=== PATIENT | male | born 1985 | race Caucasian/White ===

== ENCOUNTER 2023-12-10 21:13 | Emergency (ER) | payer OTHER, SELFPAY ==
[2023-12-10 21:19] VITALS: BP 194/101
[2023-12-10 23:55] VITALS: BMI 41.2
--- NOTE | 2023-12-11 02:02 | ED.GENMED ---
History of Present Illness
General
Chief Complaint: DVT/Possible Blood Clot
Source: patient
Exam Limitations: none
Time Seen by Provider: 12/11/23 01:40
Nursing documentation reviewed up to this point in time: agreed with
Travel History
Have you had any contact with someone who has COVID-19?: No
Do you have any symptoms of coronavirus? Fever > 100 degrees, chills, cough, shortness of breath, sore throat, loss of taste or smell, muscle aches, or headache?: No
History of Present Illness
History of Present Illness:
38-year-old male presents emergency department complaining of bruising to right forearm. He denies any injury. He takes Plavix and aspirin.
Past History
Past History
ED Past Medical History: CVA and Other (MRSA infection left lower extremity, factor V Leiden heterozygosity)
ED Past Surgical History: Orthopedic (Left knee surgeries x2) and Other (Bariatric surgery January 2021)
Social History
Tobacco: Non-smoker
Alcohol: Occasional
Drug: None
Personal: Single
Living: with family
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
Family History
Family History: Other (Mother with factor V Leiden had a stroke in her 30s)
Review of Systems
Review of Systems
Allergies reviewed?: Yes
All Other Systems: Not applicable
Constitutional: Reports no symptoms
EENT: Reports no symptoms
Respiratory: Reports no symptoms
Cardiac: Reports no symptoms
ABD/GI: Reports no symptoms
: Reports no symptoms
Musculoskeletal: Reports no symptoms
Skin: Reports other (Bruising right forearm)
Neurological: Reports no symptoms
Endocrine: Reports no symptoms
Hematologic/Lymphatic: Reports bruising
Psychiatric: Reports no symptoms
Phy Exam
Physical Exam
Physical Exam:
Physical Exam
General: no apparent distress, not acutely ill
Neck: supple. no meningeal signs. normal posterior pharynx
Heart: equal radial pulses.
HEENT: Pupils equal round reactive to light, EOMI
Lungs: no acute respiratory distress.
Abdomen: Nondistended
Neuro: alert and oriented. no focal neurological deficits
Skin: no rash, 2 cm hematoma right forearm appears 1 to 2 days old.
Psychiatric: well kept. interactive and cooperative
Extremities: no edema. no calf tenderness. negative homans. good distal pulses
Course
Orders/Labs/Results
Orders:
Orders
12/11/23 00:00
US Periph Venous UPPER Ext RT Urgent
Reason For Exam: bruising
Vital Signs
Initial and Last Documented VS:
Initial Vital Signs
Temp Pulse Resp BP Pulse Ox
98.2 F 73 18 194/101 98
12/10/23 21:19 12/10/23 21:19 12/10/23 21:19 12/10/23 21:19 12/10/23 21:19
Last Documented Vital Signs
Temp Pulse Resp BP Pulse Ox
98.2 F 73 18 194/101 98
12/10/23 21:19 12/10/23 21:19 12/10/23 21:19 12/10/23 21:19 12/10/23 21:19
MDM/Problems Addressed
Differential Diagnosis Includes:
DVT, compartment syndrome
MDM/Problems Addressed:
38-year-old male with hematoma right forearm, do not suspect DVT. Ultrasound negative.
Chronic conditions affecting care: HTN and Other (Prior TIA)
Acute Exacerbation and/or Progression of Chronic Illness: Other (Prior TIA)
*Radiology
Radiology exam reviewed: radiology read reviewed (Ultrasound no signs of DVT right arm)
*Pulse Oximetry
Patient hypoxic: no
*EKG
Interpreted by ED Provider?: NA
*Sanitation Worker Interpretation
Rate: Sanitation Worker- N/A
*Critical Care Note
Total Time (30-74mins, 75-104mins- exclusive of procedures): Not Applicable
Patient Management
Social determinants of health affecting care: Living situation
Escalation/DeEscalation of care consider admission/obs:
Not indicated
ED Attending Note
-
Portions of this chart may have been created with voice recognition software.� Occasional wrong word or��sound alike� substitutions may have occurred due to the inherent limitations of voice recognition software.
Discharge Plan
Departure
Patient Disposition: Home (Routine Discharge)
Date of Disposition: 12/11/23
Time of Disposition: 02:02
Patient with high blood pressure during this ER visit?: Yes
Condition: Good
Discharge Problem:
Traumatic hematoma of right forearm
Instructions: BLOOD PRESSURE, Hematoma
Prescriptions:
No Action
multivitamin Tablet
1 tab PO DAILY
aspirin 81 mg Tablet,Delayed Release (Dr/Ec)
81 mg PO DAILY Qty: 60 0RF
nifedipine 30 mg Tablet Extended Release
30 mg PO DAILY Qty: 30 0RF
clopidogrel 75 mg Tablet
75 mg PO DAILY Qty: 19 0RF
atorvastatin [Lipitor] 40 mg tablet
40 mg PO DAILY Qty: 30 0RF
Referrals:
Kiko Valladares DO [Family Provider] -
Interventions
Interventions:
*Risk Screen - Suicide Last Done: 12/11/23 00:38
*Neglect/Abuse Screening Last Done: 12/11/23 00:38
ED- Fall Risk Assessment Last Done: 12/11/23 00:38
*ED COVID-19 Vaccine History Last Done: 12/11/23 00:38
ED- Cardiac Assessment Last Done: 12/10/23 23:53
ED- Pulmonary Assessment Last Done: 12/10/23 23:53
ED-Peripheral Vascular Assessment Last Done: 12/10/23 23:53
ED-Skin Assessment Last Done: 12/10/23 23:53
Discharge Date and Time
Print Language: SETS[place]
[2023-12-11 02:05] VITALS: BP 172/88
== END 2023-12-11 02:12 | disposition home or self-care (01) ==
LOC: EMR 21:13
PROVIDERS: EMERGENCY PHYSICIAN Emergency Medicine; FAMILY PHYSICIAN Family Medicine
DX: S50.11XA Contusion of right forearm, initial encounter (principal); X58.XXXA Exposure to other specified factors, initial encounter; Z86.73 Personal history of transient ischemic attack (TIA), and cerebral infarction without residual deficits; D68.51 Activated protein C resistance; D68.2 Hereditary deficiency of other clotting factors; I10 Essential (primary) hypertension; Z82.3 Family history of stroke
CPT/HCPCS: 99284; 93971

== ENCOUNTER → 2024-06-24 07:23 | Day surgery (SDC) | payer BC, SELFPAY ==
[2024-06-24 07:58] VITALS: BMI 41.5
== END ==
LOC: CATH 07:23
PROVIDERS: ATTENDING PHYSICIAN Internal Medicine Cardiovascular Disease; FAMILY PHYSICIAN Family Medicine
DX: I35.1 Nonrheumatic aortic (valve) insufficiency (principal); I08.3 Combined rheumatic disorders of mitral, aortic and tricuspid valves; I08.8 Other rheumatic multiple valve diseases
CPT/HCPCS: 93312; 93320; 93325

== ENCOUNTER 2025-08-17 00:49 | Emergency (ER) | payer OTHER, SELFPAY ==
[2025-08-17 00:51] VITALS: BP 180/89
[2025-08-17 01:18] VITALS: BP 164/89
--- NOTE | 2025-08-17 01:27 | ED.GENMED ---
History of Present Illness
General
Chief Complaint: Abdominal Pain
Time Seen by Provider: 08/17/25 01:12
History of Present Illness
History of Present Illness:
39-year-old male presents to the emergency department for evaluation of 2 bouts of mid back discomfort radiating to the upper abdomen bilaterally. Each episode lasted 5 minutes before resolving. No obvious provoking or palliating factors.
Currently pain-free. Prior history of gastric sleeve. Denies fever, chills, sweats, vomiting, diarrhea, or melena. Does not routinely take NSAIDs other than baby aspirin due to prior history of stroke.
Past History
Past History
ED Past Medical History: CVA and Other (MRSA infection left lower extremity, factor V Leiden heterozygosity)
ED Past Surgical History: Orthopedic (Left knee surgeries x2) and Other (Bariatric surgery January 2021)
Social History
Tobacco: Non-smoker
Alcohol: Occasional
Drug: None
Personal: Single
Living: with family
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
Family History
Family History: Other (Mother with factor V Leiden had a stroke in her 30s)
Review of Systems
Review of Systems
Allergies reviewed?: Yes
All Other Systems: ROS reviewed and negative except as documented in HPI and ROS
Phy Exam
Physical Exam
Physical Exam:
GEN: Well appearing, NAD, WDWN
HEENT: Oral mucosa moist, no scleral icterus
Cardiac: Regular rate
Lung: No respiratory distress, no tachypnea
Abdomen: Soft, grossly nontender, negative Fischer
MSK: No gross deformity or injuries
Skin: Good color, no pallor or jaundice, no rashes
Neuro: AO x3, moves all extremities freely
Psych: Calm, cooperative
Course
Orders/Labs/Results
Orders:
Orders
08/17/25 00:56
ECG [Electrocardiogram (*1)] Urgent
Reason for Study: Abdominal Pain
EKG- Treatment ONCE
08/17/25 01:37
Complete Blood Count/With Diff Urgent
Comprehensive Metabolic Panel Urgent
Lipase Urgent
Abnormal Lab Results
08/17/25
01:37
Hct 38.3 L %
(39.0-52.0)
Glucose 106 H mg/dl
(70-99)
08/17/25 01:37
08/17/25 01:37
Vital Signs
Initial and Last Documented VS:
Initial Vital Signs
Temp Pulse Resp BP Pulse Ox
98.0 F 79 16 180/89 95
08/17/25 00:51 08/17/25 00:51 08/17/25 00:51 08/17/25 00:51 08/17/25 00:51
Last Documented Vital Signs
Temp Pulse Resp BP Pulse Ox
98.0 F 66 16 148/75 96
08/17/25 00:51 08/17/25 02:45 08/17/25 02:30 08/17/25 02:00 08/17/25 02:45
MDM/Problems Addressed
MDM/Problems Addressed:
Exam benign, labs reassuring. Lack of active pain do not see indication for imaging. Did consider biliary colic however the bilateral nature of the pain makes this less likely.
*Pulse Oximetry
SaO2: 95
Oxygen Mode of Delivery: Room air
Patient hypoxic: no
*Critical Care Note
Total Time (30-74mins, 75-104mins- exclusive of procedures): Not Applicable
ED Attending Note
-
Portions of this chart may have been created with voice recognition software.� Occasional wrong word or��sound alike� substitutions may have occurred due to the inherent limitations of voice recognition software.
Discharge Plan
Departure
Patient Disposition: Home (Routine Discharge)
Date of Disposition: 08/17/25
Time of Disposition: 02:49
Patient with high blood pressure during this ER visit?: No
Discharge Problem:
Abdominal pain
Instructions: Abdominal Pain
Prescriptions:
No Action
valsartan 160 mg Capsule
160 mg PO DAILY
chlorthalidone 25 mg Tablet
25 mg PO DAILY
albuterol-budesonide 90-80 mcg/actuation Hfa Aerosol Inhaler
2 inh INHALATION ONCE
Rx Instructions:
as a single dose; may repeat up to 6 doses per day (12 inhalations)
atorvastatin [Lipitor] 40 mg tablet
40 mg PO DAILY
aspirin 81 mg tablet,delayed release (DR/EC)
162 mg PO DAILY
Referrals:
Kiko Valladares DO [Family Provider, Family Practice]
Activity Restrictions/Additional Instructions:
If you have continued bouts of upper abdominal pain, particularly with fatty meal intake, please consider outpatient gallbladder imaging
If you develop increased nausea and/or diarrhea today, this likely indicates food poisoning was the cause of your pain
Interventions
Interventions:
*General Assessment Last Done: 08/17/25 02:57
*Neglect/Abuse Screening Last Done: 08/17/25 02:57
*ED COVID-19 Vaccine History Last Done: 08/17/25 00:52
*ED Influenza Vaccine History Last Done: 08/17/25 00:55
[facility] Risk Assessment Tool Last Done: 08/17/25 00:56
*Risk Screen - Suicide (C-SSRS) Last Done: 08/17/25 02:59
*Nursing Disposition Last Done: 08/17/25 02:57
OZ-[id number]-[id number] Assessment Last Done: 08/17/25 01:59
Discharge Date and Time
Discharge Date/Time: 08/17/25 02:59
Print Language: [place]
[2025-08-17 01:51] LABS: Hematocrit 38.3 % (39.0-52.0); Hemoglobin 13.6 g/dL (13.0-18.0); Mean Corp Hgb Conc. 35.5 g/dL (33.0-37.0); Mean Corpuscular Volume 80.3 fL (80.0-94.0); Nucleated Red Blood Cells % 0 % (-); Platelet Count 196 10^3/uL (130-400); Red Cell Dist. Width 12.5 % (11.5-14.5)
[2025-08-17 02:00] VITALS: BP 148/75
[2025-08-17 02:12] LABS: ALT (SGPT) 38 U/L (0-50); AST (SGOT) 47 U/L (17-59); Albumin 4.2 g/dl (3.5-5.0); Alkaline Phosphatase 56 U/L (38-126); Blood Urea Nitrogen 16 mg/dl (9-20); Calcium 9.4 mg/dl (8.4-10.2); Carbon Dioxide 28 mmol/L (22-30); Chloride 105 mmol/L (98-107); Glucose 106 mg/dl (70-99); Lipase 92 U/L (23-300); Potassium 4.0 mmol/L (3.5-5.1); Sodium 139 mmol/L (135-145); Total Protein 6.9 g/dl (6.3-8.2); eGFR > 60.00
== END 2025-08-17 02:59 | disposition home or self-care (01) ==
LOC: EMR 00:49
PROVIDERS: Physician Assistant; EMERGENCY PHYSICIAN Student in an Organized Health Care Education/Training Program; FAMILY PHYSICIAN Family Medicine
DX: R10.9 Unspecified abdominal pain (principal); D68.51 Activated protein C resistance; Z82.3 Family history of stroke; Z83.2 Family history of diseases of the blood and blood-forming organs and certain disorders involving the immune mechanism; Z86.14 Personal history of Methicillin resistant Staphylococcus aureus infection; Z86.73 Personal history of transient ischemic attack (TIA), and cerebral infarction without residual deficits; Z98.84 Bariatric surgery status
CPT/HCPCS: 99283; 80053; 83690; 85025; 93005